=== PATIENT | female | born 1940 | race American Indian/Alaskan Native ===

== ENCOUNTER 2017-01-21 08:28 | Day surgery (SDC) | payer MEDICARE ==
[2017-01-21] MEDS ORDERED: NACL 0.9% 1000 ML 1,000 ML IV SCH (10:00)
[2017-01-21] MEDS ORDERED: DIPRIVAN 10 MG/ML IV ONE ×4 (11:05→12:12)
--- NOTE | 2017-01-21 12:36 | Short Stay Summary ---
Short Stay Documentation Date of service: 01/21/17 Narrative H&P: The patient presents for high risk screening colonoscopy. She has a personal history of breast cancer. Her last study was 10 years ago. - History Past Medical History: cancer (breast cancer), hypertension Past Surgical History: Other (breast surgery) Social history: no significant social history - Allergies and Medications Current Medications: Allergies No Known Allergies Allergy (Unverified 09/12/15 12:55) Home Medications Medication Instructions Recorded Confirmed Last Taken Type Carvedilol [Coreg] 6.25 mg PO BID 09/12/15 10/02/15 01/21/17 06:00 History Latanoprost 0.005% [Xalatan 0.005%] 1 drop OP QPM 09/12/15 10/03/15 01/20/17 History Lisinopril/Hydrochlorothiazide 1 tab PO QDAY 09/12/15 10/02/15 01/21/17 06:00 History [Lisinopril-Hctz 20-12.5 mg Tab] Potassium Chloride [Klor-Con 10] 10 meq PO QDAY 09/12/15 10/02/15 01/20/17 History Timolol 0.5% [Timoptic] 1 drops OP BID 09/12/15 10/02/15 01/20/17 History amLODIPine [Norvasc] 5 mg PO DAILY 09/12/15 10/02/15 01/21/17 06:00 History HYDROcodone/APAP 5-325 [[place] 1 each PO Q6HR PRN #25 tablet 09/19/15 10/03/15 Rx 5/325] Active Medications Sodium Chloride (Nacl 0.9% 1000 Ml) 1,000 mls @ 50 mls/hr IV DIRECT LUL Last Admin: 01/21/17 09:50 Dose: 50 mls/hr - Physical exam General appearance: no acute distress, well-nourished Integumentary: no rash, no growths, no abnormal pigmentation HEENT: Atraumatic, PERRLA, EOMI, Mucous membr. moist/pink Lungs: Clear to auscultation, Normal air movement Breasts: deferred Heart: Regular rate, Normal S1, Normal S2, No murmurs Gastrointestinal: normoactive bowel sounds, no tenderness, no masses, no guarding, no organomegaly, obese Female Genitourinary: deferred Rectal Exam: normal exam-external/orifice, no mass Extremities: no ischemia, pulses intact, pulses symmetrical, No edema, normal temperature, normal color, Full ROM Neurological: Normal gait, Normal speech, Strength at 5/5 X4 ext, Normal tone, Sensation intact, Cranial nerves 3-12 NL - Brief post op/procedure progress note Date of procedure: 01/21/17 Findings: see dictated report Estimated blood loss: none Pathology: list (hepatic flexure polyp, transverse colon polyp, descending colon polyp) Specimen disposition: to lab Condition: stable - Disposition Condition at discharge: Good Disposition: DISCHARGED TO HOME OR SELFCARE - Discharge Diagnoses (1) Colon cancer screening Status: Acute Short Stay Discharge Plan Activity: other (no driving for 24 hours) Weight Bearing Status: Full Weight Bearing Diet: regular Follow up with: EZ LOO MD [Primary Care Provider] - 7 Days
--- NOTE | 2017-01-21 12:41 | Anesthesia Consultation ---
Anesthesia Consult and Med Hx Date of service: 01/21/17 - Airway Anesthetic Teeth Evaluation: Dentures (upper and lower) - Pulmonary Exam CTA: Yes - Cardiac Exam Cardiac Exam: RRR - Pre-Operative Health Status ASA Pre-Surgery Classification: ASA2 Proposed Anesthetic Plan: MAC - Pulmonary Hx Smoking: No Hx Sleep Apnea: No - Cardiovascular System Hx Hypertension: Yes Hx Coronary Artery Disease: No - Central Nervous System Hx Psychiatric Problems: No - Gastrointestinal Hx Gastroesophageal Reflux Disease: No - Endocrine Hx Non-Insulin Dependent Diabetes: No - Other Systems Hx Cancer: Yes Hx Obesity: No (right breast s/p mastectomy 08/2015) - Additional Comments Anesthesia Medical History Comments: NAC
--- NOTE | 2017-01-21 12:42 | Anesthesia Day of Surgery ---
Anesthesia Day of Surgery - Day of Surgery Patient Examined: Yes Patient H&P Reviewed: Yes Patient is NPO: Yes
--- NOTE | 2017-01-21 12:43 | Operative Report ---
Operative Report Operative Report: Date of procedure: 01/21/2017 Preprocedure diagnosis: High risk risk colon cancer screening. Personal history of breast cancer. Last colonoscopy 10 years ago. Post procedure diagnosis: Large hepatic flexure polyp (2 cm), 1.5 cm descending colon polyp. 1.5 cm transverse colon polyp. Moderate left colon diverticulosis. Redundant colon. Procedure: Colonoscopy to the ileocecal valve with snare cautery polypectomy 3 Endoscopist: Dr. Martinez Anesthesia: Monitored anesthesia care per anesthesia department Estimated blood loss: 0 Medications: Monitored anesthesia care. See separate report by anesthesia for details. After careful discussion of the nature and purpose of the procedure as well as details of the technique risks benefits and alternatives the patient gave consent. Please see recent history and physical from the office. The patient was placed in the left lateral decubitus position and medicated per anesthesia. A rectal exam was performed sphincter tone was normal there were no masses palpable. The [employer] 570 scope was passed transanally and advanced under continuous direct vision to the ileocecal valve with moderate difficulty due to 2 severe loop formation and a redundant colon. The colon was well prepared. . The ascending colon was normal. There was a 2 cm polyp which was friable and on a relatively short stalk present in the hepatic flexure. The polyp was removed with snare electrocautery and removed on the tip of the scope. The scope was returned reintroduced to the polypectomy site which appeared to be a mole and nonbleeding. The transverse colon revealed a 1.5 cm polyp which was removed with snare and electrocautery. There was a 1.5 cm friable polyp on a short stalk present in the descending colon. The polyp was removed likewise with snare electrocautery and retrieved on the tip of the scope. Moderate diverticulosis was also observed in the left colon. The rectum was normal on forward and retroflexed views. The procedure was well-tolerated overall and the patient was observed in recovery. Conclusions: 3 medium to large size polyps present as above. Left colon diverticulosis. The cecum was not seen due to loop formation although the ascending colon was well seen as well as the rest of the colon. Plan: Await pathology. Consider barium enema in 6-8 weeks to image the cecum. Repeat colonoscopy in 3 years if there is no advanced histology present, sooner if a barium enema is not done. Signed electronically: Star Martinez M.D.
[2017-01-21 12:49] VITALS: BP 150/78
--- NOTE | 2017-01-21 13:55 | Post Anesthesia Evaluation ---
- Post Anesthesia Evaluation Patient Participated: Yes Airway Patent: Yes Stable Respiratory Function: Yes Nausea/Vomiting: No Temp > 96.8F: Yes Pain Manageable: Yes Adequeate Hydration: Yes Anesthesia Complications: No
== END 2017-01-21 08:29 | disposition home or self-care (01) ==
LOC: GIO 08:28
PROVIDERS: ATTEND Internal Medicine Gastroenterology
DX: Z12.11 Encounter for screening for malignant neoplasm of colon (principal); D12.3 Benign neoplasm of transverse colon; K63.5 Polyp of colon; K57.30 Diverticulosis of large intestine without perforation or abscess without bleeding; Q43.8 Other specified congenital malformations of intestine; I10 Essential (primary) hypertension; Z85.3 Personal history of malignant neoplasm of breast; Z90.11 Acquired absence of right breast and nipple
CPT/HCPCS: 45385; 88305; J2704; J7030

== ENCOUNTER 2020-09-12 13:05 | Outpatient (CLI) | payer MEDICARE ==
--- NOTE | 2020-09-12 14:17 | Mammography Report ---
BILATERAL DIGITAL SCREENING MAMMOGRAM WITH CAD HISTORY: Screening mammogram, history of right breast partial mastectomy. TECHNIQUE: Routine digital mammographic imaging performed. This examination was interpreted with [facility] benefit of Computer-aided Detection analysis. COMPARISON: 09/08/2019, 09/06/2018, 09-18, 09/01/2016. FINDINGS: Breast Density: scattered fibroglandular appearance of the breast tissue. Digital CC and MLO views demonstrate no mammographic evidence of malignancy. Stable postsurgical kimberly nges in the right breast. IMPRESSION: No mammographic evidence of malignancy. If the clinical examination remains stable, recommend bilate ral mammogram in approximately one year. BIRADS 2: Benign Finding(s). FURTHER INFORMATION: According to the [employer], yearly mammograms are recommend ed starting at age 40 and continuing as long as a woman is in good health. Clinical Breast Exams shou ld be part of a periodic health exam-about every 3 years for women in their 20s and 30s and every yea r for women 40 and over. Breast self exam is an option for women starting in their 20s. Any breast ch ben noted on a breast self exam should be reported promptly to the patient's healthcare provider. Br east MRI is recommended for women with an approximately 20-25% or greater lifetime risk of breast can cer, including women with a strong family history of breast or ovarian cancer and women who have been treated for Hodgkin's disease. A negative Mammography report should not discourage follow up or biopsy of a clinically significant f inding and/or abnormality. Dense breast tissue may obscure small neoplasms. The patient will be entered into a reminder system with a target due date for the next screening mamm ogram. Signer Name: Kelvin Jordan MD Signed: 09/12/2020 2:12 PM Workstation Name: [id number]
== END 2020-09-12 13:06 | disposition home or self-care (01) ==
LOC: SPVWC 13:05
PROVIDERS: ATTEND Surgery
DX: Z12.31 Encounter for screening mammogram for malignant neoplasm of breast (principal)
CPT/HCPCS: 77067

== ENCOUNTER 2021-09-18 09:47 | Outpatient (CLI) | payer MEDICARE ==
--- NOTE | 2021-09-18 15:47 | Mammography Report ---
DIGITAL SCREENING MAMMOGRAM WITH CAD, 09/18/2021 CLINICAL INFORMATION / INDICATION: Routine screening mammography. SCREENING MAMMO TECHNIQUE: Digital bilateral 2D mammography was obtained in the craniocaudal and mediolateral obliqu e projections. This examination was interpreted with the benefit of Computer-Aided Detection analysis . COMPARISON: 09/12/2020 FINDINGS: Breast Density: There are scattered areas of fibroglandular density. No dominant mass, suspicious calcifications, or architectural distortion in either breast. Scarring on right. Stable nodule on the left. IMPRESSION: No mammographic evidence of malignancy. Follow up recommendation: Routine yearly BI-RADS Category 2: Benign. A "normal" or negative report should not discourage follow up or biopsy of a clinically significant f inding. A written summary of these findings will be mailed to the patient. The patient will be entered into a mammography reporting system which will generate a reminder letter for the patient's next appointmen t at the appropriate interval. The [employer] recommends yearly mammograms starting at age 40 and continuing as l tomi as a woman is in good health. Breast MRI is recommended for women with an approximate 20-25% or greater lifetime risk of breast cancer, including women with a strong family history of breast or ova nhung cancer or who have been treated for Hodgkin's disease. Signer Name: Obi Preston MD Signed: 09/18/2021 3:42 PM Workstation Name: [id number]
== END 2021-09-18 09:48 | disposition home or self-care (01) ==
LOC: SPVWC 09:47
PROVIDERS: ATTEND Internal Medicine
DX: Z12.31 Encounter for screening mammogram for malignant neoplasm of breast (principal)
CPT/HCPCS: 77067